=== PATIENT | male | born 1970 | race Caucasian/White ===

== ENCOUNTER 2020-01-22 11:48 | Outpatient (CLI) | payer OTHER, SELFPAY ==
--- NOTE | ~2020-01-22 | XR_ITS ---
XR chest 2V DATE: 01/22/2020 12:06 INDICATION: Shortness of breath. Dizziness. COPD. TECHNIQUE: PA and lateral views COMPARISON: 06/27/2016 two-view chest FINDINGS: Chronic mild elevation of right diaphragm and blunting of right costophrenic angle, stable since 06/27/2016. Mild bilateral apical capping. No pulmonary infiltrate or consolidation, pleural effusion or pulmonary vascular congestion or pneumo thorax is detected. Normal heart size. No hilar or mediastinal enlargement. Diffuse osteopenia. IMPRESSION: No active disease or significant or significant change since 06/27/2016 Reviewed, dictated and finalized at location A. IMPRESSION: No active disease or significant or significant change since 017
--- NOTE | 2020-01-22 12:06 | ECG_ITS ---
Measurements Intervals [place] Rate: 65 P: 51 IN: 151 QRS: 66 QRSD: 82 T: 53 QT: 392 QTc: 410 Interpretive Statements SINUS RHYTHM RSR' IN V1 OR V2, PROBABLY NORMAL VARIANT BORDERLINE ECG Electronically Signed On 01-22-2020 12:56:10 CDT by Weston Alva D.O.
[2020-01-22 13:04] LABS: Hematocrit 44.6 % (42.0-52.0); Hemoglobin 15.1 g/dL (14.0-18.0); Mean Corpuscular HGB Conc 33.9 g/dl (32-36); Mean Corpuscular Hemoglobin 31.3 pg (26-34); Mean Corpuscular Volume 92.5 fl (80-100); Mean Platelet Volume 9.4 fl (7.4-10.4); Platelet Count Result 250 k/mm3 (150-375); Red Blood Count 4.82 M/mm3 (4.6-6.20); Red Cell Distribution Width 12.7 % (11.5-14.5)
[2020-01-22 13:39] LABS: Anion Gap 11 mmol/L (8-16); Blood Urea Nitrogen 14 mg/dL (9-20); Calcium 9.4 mg/dL (8.4-10.2); Carbon Dioxide 24 mmol/L (22-30); Chloride 102 mmol/L (98-107); Estimated Glomerular Filt Rate > 60; Glucose 103 mg/dL (75-110); Potassium 4.3 mmol/L (3.4-5.0); Sodium 137 mmol/L (137-145)
== END 2020-01-22 11:49 | disposition home or self-care (01) ==
PROVIDERS: PCP Family Medicine; Visit Provider Nurse Practitioner Family
DX: R42 Dizziness and giddiness (principal); I10 Essential (primary) hypertension; R06.02 Shortness of breath
CPT/HCPCS: 36415; 71046; 80048; 84443; 85027; 93005

== ENCOUNTER 2020-02-16 15:53 | Outpatient (CLI) | payer OTHER, SELFPAY ==
--- NOTE | ~2020-02-16 | MR_ITS ---
EXAMINATION: MR brain/brain stem wo con EXAM DATE: 02/16/2020 16:47 INDICATION: Dizziness and giddiness. TECHNIQUE: Multi-sequential, multiplanar MR images of the brain, brainstem, internal auditory canals were obtained without contrast. Whole brain sagittal T1, axial diffusion, gradient echo (T2*), T1, T 2, FLAIR sequences obtained. High resolution coronal 3-D FIESTA, coronal T1 FSE, axial T1 FSPGR of t he internal auditory canals. There is no prior study for comparison. FINDINGS: No evidence of mastoid or middle ear opacification. The 7th/8th cranial nerve complexes a re symmetric, normal in course and caliber. No cerebellopontine angle masses. Posterior fossa unrem arkable. There are no areas of restricted diffusion to suggest acute infarction. There is no acute hemorrhage seen on the T2*, a hemosiderin sensitive sequence. No intraparenchymal brain mass. The ventricles a re normal in size. There are no extra-axial collections. Flow voids are seen in the cerebral arteri es on the T2-weighted sequences consistent with their expected patency. The orbits are unremarkable. Soft tissue is unremarkable. There is minimal mucoperiosteal thickening. IMPRESSION: 1. Unremarkable brain MRI examination. Reviewed, dictated and finalized at location B.
== END 2020-02-16 15:54 | disposition home or self-care (01) ==
PROVIDERS: PCP Family Medicine; Visit Provider Nurse Practitioner Family
DX: R42 Dizziness and giddiness (principal); H93.19 Tinnitus, unspecified ear
CPT/HCPCS: 70551

== ENCOUNTER 2022-02-27 02:59 | Emergency (ER) | payer OTHER, SELFPAY ==
[2022-02-27 03:14] VITALS: BP 172/89; PULSE 97; RESP 18; TEMP 36.1; O2SAT 100
--- NOTE | 2022-02-27 03:19 | ECG_ITS ---
Measurements Intervals [place] Rate: 82 P: 54 VT: 153 QRS: 58 QRSD: 88 T: 38 QT: 364 QTc: 427 Interpretive Statements SINUS RHYTHM NONSPECIFIC T-WAVE ABNORMALITY ABNORMAL ECG COMPARED TO ECG 01/22/2020 12:19:06 T-WAVE ABNORMALITY NOW PRESENT Electronically Signed On 02-27-2022 9:29:28 CDT by Jesús Barbosa M.D.
[2022-02-27 03:50] VITALS: BP 164/93; PULSE 94; RESP 15; O2SAT 98; O2SAT 99
[2022-02-27 04:03] VITALS: BP 139/77
--- NOTE | 2022-02-27 04:38 | ED.GENADULT ---
HPI - General Adult General Chief complaint: Unspecified Stated complaint: Anxiety,SOB after new supplements Time Seen by Provider: 02/27/22 04:24 Related Data Home Medications Medication Instructions Recorded Confirmed indomethacin 50 mg capsule 50 mg PO BID PRN gout 01/11/21 02/27/22 allopurinol 300 mg tablet 300 mg PO DAILY 02/27/22 02/27/22 metoprolol succinate 100 mg 150 mg PO DAILY 02/27/22 02/27/22 tablet,extended release 24 hr Allergies Allergy/AdvReac Type Severity Reaction Status Date / Time No Known Allergies Allergy Verified 02/27/22 03:00 [facility] Family History Family History Grandparent Cerebrovascular accident Family history of coronary artery disease Mother Cerebrovascular accident Family history of diabetes mellitus in first degree relative Family history of coronary artery disease Diabetes mellitus Hypertension Father Family history of diabetes mellitus in first degree relative Hypertension Diabetes mellitus Cerebrovascular accident Sibling Hypertension Multiple sclerosis Social History Social History Smoking packs per day: 0.5 Smoking cigarettes per day: 10.0 Years smoked: 20 Smoking pack-years: 10.00 Smoking status: Current every day smoker Tobacco type: cigarettes Second hand tobacco smoke exposure: Yes Alcohol intake: current Substance use: never Substance use type: does not use 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 Gender identity (if verbalized by the patient): Male Course Vital Signs Vital signs: Vital Signs Temperature 96.9 F L 02/27/22 03:14 Pulse Rate 97 02/27/22 03:14 Respiratory Rate 18 02/27/22 03:14 Blood Pressure 172/89 H 02/27/22 03:14 Pulse Oximetry 100 02/27/22 03:14 Oxygen Delivery Room Air 02/27/22 03:14 Temperature 96.9 F L 02/27/22 03:14 Pulse Rate 94 02/27/22 03:50 Respiratory Rate 15 02/27/22 03:50 Blood Pressure 139/77 02/27/22 04:03 Pulse Oximetry 98 02/27/22 03:50 Oxygen Delivery Room Air 02/27/22 03:50 Medical Decision Making Vital Signs Vital Signs: Vital Signs Temperature 96.9 F L 02/27/22 03:14 Pulse Rate 97 02/27/22 03:14 Respiratory Rate 18 02/27/22 03:14 Blood Pressure 172/89 H 02/27/22 03:14 Pulse Oximetry 100 02/27/22 03:14 Oxygen Delivery Room Air 02/27/22 03:14 Temperature 96.9 F L 02/27/22 03:14 Pulse Rate 94 02/27/22 03:50 Respiratory Rate 15 02/27/22 03:50 Blood Pressure 139/77 02/27/22 04:03 Pulse Oximetry 98 02/27/22 03:50 Oxygen Delivery Room Air 02/27/22 03:50 Discharge Plan Discharge Prescriptions: No Action indomethacin 50 mg capsule 50 mg PO BID PRN (Reason: gout) metoprolol succinate 100 mg tablet extended release 24 hr 150 mg PO DAILY Rx Instructions: TAKE 1.5 (ONE AND ONE-HALF) TABLETS BY MOUTH EVERY DAY allopurinol 300 mg tablet 300 mg PO DAILY Rx Instructions: TAKE 1 TABLET BY MOUTH EVERY DAY albuterol sulfate [Ventolin HFA] 90 mcg/actuation HFA aerosol inhaler 1 inhalation INHALATION Q4H PRN (Reason: shortness of breath or wheezing) Qty: 8 0RF hydrochlorothiazide 25 mg tablet 25 mg PO DAILY Qty: 90 1RF rosuvastatin [Crestor] 20 mg tablet 20 mg PO DAILY Qty: 90 0RF Follow-up/Referrals: Taras Christian MD [Primary Care Provider] -
--- NOTE | 2022-02-27 04:38 | ED.GENADULT ---
HPI - General Adult General Chief complaint: Unspecified Stated complaint: Anxiety,SOB after new supplements Time Seen by Provider: 02/27/22 04:24 History of Present Illness HPI narrative: Patient is a 51-year-old male with a history of hypertension, gout presenting with anxiety. Patient states that he started taking rocco supplements yesterday. Patient states he woke up in the middle of the night and felt anxious and jittery. States he was unable to fall asleep and then he felt slightly short of breath. Patient became concerned that he was having a reaction to the rocco. Denies chest pain, palpitations, lightheadedness, headache, numbness or weakness, abdominal pain, nausea or vomiting, diarrhea, leg swelling. Currently, patient states that he feels completely back to normal. Related Data Home Medications Medication Instructions Recorded Confirmed indomethacin 50 mg capsule 50 mg PO BID PRN gout 01/11/21 02/27/22 allopurinol 300 mg tablet 300 mg PO DAILY 02/27/22 02/27/22 metoprolol succinate 100 mg 150 mg PO DAILY 02/27/22 02/27/22 tablet,extended release 24 hr Allergies Allergy/AdvReac Type Severity Reaction Status Date / Time No Known Allergies Allergy Verified 02/27/22 03:00 Review of Systems Review of Systems: All systems reviewed & are unremarkable except as noted in HPI and below PMFSH Family History Family History Grandparent Cerebrovascular accident Family history of coronary artery disease Mother Cerebrovascular accident Family history of diabetes mellitus in first degree relative Family history of coronary artery disease Diabetes mellitus Hypertension Father Family history of diabetes mellitus in first degree relative Hypertension Diabetes mellitus Cerebrovascular accident Sibling Hypertension Multiple sclerosis Social History Social History Smoking packs per day: 0.5 Smoking cigarettes per day: 10.0 Years smoked: 20 Smoking pack-years: 10.00 Smoking status: Current every day smoker Tobacco type: cigarettes Second hand tobacco smoke exposure: Yes Alcohol intake: current Substance use: never Substance use type: does not use 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 Gender identity (if verbalized by the patient): Male Exam Narrative: GENERAL: Well-appearing, well-nourished, and in no acute distress. HEAD: Normocephalic, atraumatic. EYES: PERRLA and EOMI. ENT: Nares clear, no rhinorrhea or epistaxis. Mucous membranes moist. NECK: Supple. CHEST: Clear to auscultation. No respiratory distress. HEART: Regular rate and rhythm. No murmur heard. Normal peripheral pulses. ABDOMEN: Soft, nontender, nondistended, normal active bowel sounds. EXTREMITIES: Normal range of motion. No edema. SKIN: Warm, dry, no rash. NEURO: No focal deficits. Alert and oriented x3. PSYCH: Normal mood and affect. Course Course Emergency Course: Patient is a 51-year-old male presenting with an episode of anxiety. Vitals are within normal limits. Patient is well-appearing and in no acute distress. Exam is unremarkable. By the time I evaluated him, patient states that he feels completely back to normal. He plans to stop taking rocco. EKG per my interpretation shows normal sinus rhythm, normal axis and intervals, no ST elevation or depressions. Appears similar to prior. Patient feels comfortable going home. Advised PCP follow-up. Strict return precautions given. Patient discharged in stable condition. Vital Signs Vital signs: Vital Signs Temperature 96.9 F L 02/27/22 03:14 Pulse Rate 97 02/27/22 03:14 Respiratory Rate 18 02/27/22 03:14 Blood Pressure 172/89 H 02/27/22 03:14 Pulse Oximetry 100 02/27/22 03:14 Oxygen Delivery Room Air 02/27/22 03:14 Temperature 96.9 F L 02/27/22 03:14 Pulse Rate 85 1
[2022-02-27 05:18] VITALS: BP 138/85; PULSE 82; RESP 13; O2SAT 98
[2022-02-27 05:31] VITALS: PULSE 85; RESP 15; O2SAT 98
== END 2022-02-27 05:32 | disposition home or self-care (01) ==
PROVIDERS: Emergency Provider Emergency Medicine; PCP Family Medicine
DX: F41.9 Anxiety disorder, unspecified (principal); I10 Essential (primary) hypertension; M10.9 Gout, unspecified; F17.210 Nicotine dependence, cigarettes, uncomplicated; R94.31 Abnormal electrocardiogram [ECG] [EKG]
CPT/HCPCS: 93005; 99283

== ENCOUNTER 2022-09-22 08:32 | Emergency (ER) | payer OTHER, SELFPAY ==
[2022-09-22] VITALS (7 sets, daily range): BP systolic 122–148; BP diastolic 72–88; PULSE 68–80; RESP 16–23; TEMP 36.6; O2SAT 96–97
--- NOTE | ~2022-09-22 | CT_ITS ---
EXAMINATION: CTA brain carotid DATE: 09/22/2022 12:31 CDT INDICATION: Vertigo TECHNIQUE: Computed tomographic angiography (CTA) of the head was performed without and with 100 mL O mnipaque-350 intravenous contrast. CTA of the neck was performed with intravenous contrast. The dose- length product was 1929.42 mGy-cm. Maximum intensity projection and volume rendered 3D-reconstruction s were created by the technologist on a separate workstation. COMPARISON: MRI dated 02/16/2020. FINDINGS: HEAD CTA: Normal brain parenchymal volume normal leone-white differentiation. No acute infarction, hem orrhage, mass or mass effect. No ventriculomegaly or midline shift. Basilar cisterns are patent. Ther e is mild mucosal thickening of the ethmoid sinuses. Mastoids are pneumatized. No depressed skull fra ctures. The anterior, middle and posterior cerebral arteries are symmetric. No significant stenosis, occlusion or aneurysm. The vertebral arteries are symmetric. NECK CTA: There is mild mediastinal lymph node enlargement, most likely reactive. Severe emphysema. T hyroid gland is unremarkable. There is atherosclerosis of the right vertebral artery without occlusion proximally. No significant a bnormality of the common, internal or external carotid arteries. There is 0% stenosis of the proximal right internal carotid artery relative to normal distal artery l umen diameter (NASCET criteria). There is 0% stenosis of the proximal left internal carotid artery re lative to normal distal artery lumen diameter. IMPRESSION: 1. 0% stenosis of the proximal right internal carotid artery relative to normal distal artery lumen d iameter (NASCET criteria). 2. 0% stenosis of the proximal left internal carotid artery relative to normal distal artery lumen di ameter. 3: No acute intracranial abnormality. 4: No significant abnormality of the intracranial vasculature. Reviewed, dictated and finalized at location B. IMPRESSION: 1. 0% stenosis of the proximal right internal carotid artery relative to normal distal artery lumen diameter (NASCET criteria). 2. 0% stenosis of the proximal left internal carotid artery relative to normal distal artery lumen diameter. 3: No acute intracranial abnormality. 4: No significant abnormality of the intracranial vasculature.
--- NOTE | 2022-09-22 08:40 | ECG_ITS ---
Measurements Intervals [place] Rate: 79 P: 46 IN: 153 QRS: 55 QRSD: 79 T: 22 QT: 366 QTc: 422 Interpretive Statements SINUS RHYTHM NONSPECIFIC T-WAVE ABNORMALITY- INFERIOR LEADS BASELINE ARTIFACT- II, III, AVF BORDERLINE ECG COMPARED TO ECG 02/27/2022 03:55:43 NO SIGNIFICANT CHANGES Electronically Signed On 09-22-2022 8:43:53 CDT by Weston Alva D.O.
[2022-09-22 08:55] LABS: Basophils Absolute Auto 0.1 K/mm3 (0.0-0.1); Basophils Percent Auto 0.7 % (0.2-1.2); Eosinophils Absolute Auto 0.3 K/mm3 (0-0.3); Hematocrit 44.2 % (42.0-52.0); Hemoglobin 14.8 g/dL (14.0-18.0); Immature Granulocyte Absolute 0.04 K/mm3 (0.00-0.031); Immature Granulocyte Percent A 0.5 % (0-0.5); Lymphocytes Absolute Auto 2.24 K/mm3 (0.9-3.2); Lymphocytes Percent Auto 27.2 % (18.3-44.2); Mean Corpuscular HGB Conc 33.5 g/dl (32-36); Mean Corpuscular Hemoglobin 31.8 pg (26-34); Mean Corpuscular Volume 95.1 fl (80-100); Monocytes Absolute Auto 0.6 K/mm3 (0.1-0.6); Monocytes Percent Auto 6.8 % (2.6-8.5); Neutrophils Absolute Auto 5.1 K/mm3 (1.3-6.7); Neutrophils Percent Auto 61.8 % (45.5-73.1); Platelet Count Result 227 k/mm3 (150-375); Red Blood Count 4.65 M/mm3 (4.6-6.20); Red Cell Distribution Width 13.3 % (11.5-14.5); White Blood Count 8.3 K/mm3 (4.5-10.0)
[2022-09-22 09:06] LABS: Alanine Aminotransferase 31 U/L (6-50); Albumin Level 4.4 g/dL (3.5-5.1); Alkaline Phosphatase 72 U/L (38-126); Anion Gap 8 mmol/L (8-16); Aspartate Amino Transferase 33 U/L (17-59); Bilirubin,Total 0.5 mg/dL (0.2-1.3); Blood Urea Nitrogen 12 mg/dL (9-20); Calcium 8.4 mg/dL (8.4-10.2); Carbon Dioxide 25 mmol/L (22-30); Chloride 104 mmol/L (98-107); Estimated CRCL calculation 141 ml/min; Estimated Glomerular Filt Rate > 60; Glucose 126 mg/dL (65-110); Potassium 3.5 mmol/L (3.4-5.0); Sodium 137 mmol/L (137-145)
--- NOTE | 2022-09-22 10:32 | ED.DIZZY ---
HPI - Dizziness General Chief Complaint: Dizziness <GIANCARLO Lopez Last Filed: 09/22/22 17:56> Stated Complaint: ear pain/dizzy <GIANCARLO Lopez Last Filed: 09/22/22 17:56> Time Seen by Provider: 09/22/22 09:54 <GIANCARLO Lopez Last Filed: 09/22/22 17:56> Source: patient <GIANCARLO Lopez Last Filed: 09/22/22 17:56> Mode of arrival: ambulatory <GIANCARLO Lopez Last Filed: 09/22/22 17:56> Limitations: no limitations <GIANCARLO Lopez Last Filed: 09/22/22 17:56> History of Present Illness HPI Narrative: This is a 51-year-old male with PMH of hypertension, tinnitus who presents to the ED with chief complaint of dizziness beginning this morning. Patient states that his ear has felt clogged for the past few days. He states he has had problems with this in the past with cerumen impactions. Today he states the dizziness has been constant since this morning. Specifically worse with standing up from seated position. He reports that he had an episode of sweating with the dizziness as well. Reports feeling lightheaded, however did not have any LOC. Endorses some nausea with the dizziness. Denies fevers, vision changes, numbness, weakness, chest pain, shortness of breath, abdominal pain, cough. <GIANCARLO Lopez Last Filed: 09/22/22 17:56> Related Data Home Medications: Home Medications Medication Instructions Recorded Confirmed indomethacin 50 mg capsule 50 mg PO BID PRN gout 01/11/21 02/27/22 <GIANCARLO Lopez Last Filed: 09/22/22 17:56> Allergies/Adverse Reactions: Allergies Allergy/AdvReac Type Severity Reaction Status Date / Time No Known Allergies Allergy Verified 02/27/22 03:00 <GIANCARLO Lopez Last Filed: 09/22/22 17:56> Review of Systems Review of Systems: CONSTITUTIONAL: Denies fever, chills, or sweats. EYES: Denies visual changes, redness, or discharge. ENT: Denies rhinorrhea, congestion, sore throat, or otalgia. CARDIOVASCULAR: Denies chest pain, palpitations, or edema. RESPIRATORY: Denies cough or dyspnea. GASTROINTESTINAL: Denies abdominal pain, nausea, vomiting, or diarrhea. GENITOURINARY: Denies dysuria or hematuria. SKIN: Denies rash or itching. MUSCULOSKELETAL: Denies back pain, joint pain, or myalgia. NEUROLOGIC: See HPI PSYCHIATRIC: Denies anxiety or depression. <Tommie Steven PA-C - Last Filed: 09/22/22 17:56> PMFSH Family History Family History: Family History Grandparent Cerebrovascular accident Family history of coronary artery disease Mother Cerebrovascular accident Family history of diabetes mellitus in first degree relative Family history of coronary artery disease Diabetes mellitus Hypertension Father Family history of diabetes mellitus in first degree relative Hypertension Diabetes mellitus Cerebrovascular accident Sibling Hypertension Multiple sclerosis <Tommie Steven PA-C - Last Filed: 09/22/22 17:56> Social History Social History: Social History Smoking packs per day: 0.5 Smoking cigarettes per day: 10.0 Years smoked: 20 Smoking pack-years: 10.00 Smoking status: Current every day smoker Tobacco type: cigarettes Second hand tobacco smoke exposure: Yes Alcohol intake: current Substance use: never Substance use type: does not use Living arrangements: with family Occupation/Education: occupation 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 Gender identity (if verbalized by the patient): Male <Tommie Steven PA-C - Last Filed: 09/22/22 17:56> Exam Narrative: GENERAL: Well-appearing, well-nourished, and in no acute distress. HEAD: Normocephalic, atraumatic. EYES: PERRLA and EOMI. ENT: Nares clear, no rhinorrhea or epistaxis. Mucous membranes moist. Oropharynx witho
[2022-09-22] MEDS: SODIUM CHLORIDE 0.9% IV 1,000 ML 999 ML IV CONT (11:07)
[2022-09-22] MEDS: ONDANSETRON INJ 4 MG/2 ML VIAL IV PUSH (11:08)
[2022-09-22] MEDS: MECLIZINE HCL 25 MG TABLET PO (11:08)
--- NOTE | 2022-09-22 13:15 | PC.NURSE ---
attempted ear irrigation, pt unable to tolerate. irrigation unsuccessful. PA notified.
== END 2022-09-22 13:16 | disposition home or self-care (01) ==
PROVIDERS: Emergency Medicine; Emergency Provider Physician Assistant; PCP Family Medicine
DX: H69.91 Unspecified Eustachian tube disorder, right ear (principal); H61.21 Impacted cerumen, right ear; I10 Essential (primary) hypertension; F17.210 Nicotine dependence, cigarettes, uncomplicated; R94.31 Abnormal electrocardiogram [ECG] [EKG]
CPT/HCPCS: 36415; 69209; 70496; 70498; 80053; 85025; 93005; 96361; 96374; 99284; A9270; J2405; J7030; Q9967

== ENCOUNTER 2023-08-22 15:25 | Outpatient (CLI) | payer OTHER, SELFPAY ==
--- NOTE | ~2023-08-22 | XR_ITS ---
XR chest 2V 08/22/2023 15:40 Indication: Cough. Procedure: 2 view chest Comparison: Chest x-ray report dated 01/22/2020 Findings: Heart size normal. There is mild interstitial edema. Small right pleural effusion. No pneum othorax. The lungs are hyperinflated which is consistent with, but not diagnostic of chronic obstruct juan carlos pulmonary disease. Impression: 1: Mild interstitial edema. Atypical pneumonia less favored. 2: Small right pleural effusion. Reviewed, dictated and finalized at location A. Impression: 1: Mild interstitial edema. Atypical pneumonia less favored. 2: Small right pleural effusion.
== END 2023-08-22 15:26 ==
LOC: MICIMG 15:27
PROVIDERS: PCP Family Medicine; Visit Provider Nurse Practitioner Adult Health
DX: R05.8 Other specified cough (principal); J90 Pleural effusion, not elsewhere classified; R60.9 Edema, unspecified
CPT/HCPCS: 71046

== ENCOUNTER 2024-03-12 14:34 | Outpatient (CLI) | payer OTHER, SELFPAY ==
--- NOTE | ~2024-03-12 | XR_ITS ---
XR hip RT 2V w AP pelvis Ordering provider: Aby Marx, PAC History: . M25.551 - Pain in right hip . Comparison: None. FINDINGS: BONES: No acute fracture or dislocation. HIP JOINT SPACES: Normal. SACROILIAC JOINT SPACES/LUMBAR SPINE: The sacroiliac joint spaces are normal. Mild degenerative edwards es of the visualized lower lumbar spine. PUBIC SYMPHYSIS: Normal. SOFT TISSUES: Normal. IMPRESSION: No acute osseous abnormality pelvis and right hip. Reviewed, dictated and finalized at location A.
== END 2024-03-12 14:35 | disposition home or self-care (01) ==
LOC: MICIMG 14:35
PROVIDERS: PCP Family Medicine; Visit Provider Physician Assistant Medical
DX: M25.551 Pain in right hip (principal)
CPT/HCPCS: 73502

== ENCOUNTER 2024-03-20 12:06 | Emergency (ER) | payer OTHER, SELFPAY ==
--- NOTE | ~2024-03-20 | US_ITS ---
EXAMINATION: US joint non vasc comp RT DATE: 03/20/2024 13:20 INDICATION: Right trochanteric bursitis. Right hip pain. TECHNIQUE: Multiple grayscale and Doppler ultrasound images of the right lower limb were obtained. COMPARISON: Pelvis and right hip radiographs 03/12/2024 FINDINGS: There is no significant fluid in the right trochanteric bursa. IMPRESSION: 1. No significant fluid in the right trochanteric bursa. Reviewed, dictated and finalized at location A. 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
[2024-03-20 12:38] VITALS: BP 163/95; PULSE 97; RESP 15; TEMP 36.6; O2SAT 96
[2024-03-20] MEDS: KETOROLAC 30 MG/ML VIAL (*BKC) IM (13:13)
--- NOTE | 2024-03-20 13:17 | PC.NURSE ---
pt declines [place] at this time due to not being able to find a ride after taking medication. pt agrees to taking Ketorolac IM
--- NOTE | 2024-03-20 13:44 | ED.BACK ---
HPI - Back Pain/Injury General Chief Complaint: Back Pain/Injury Stated Complaint: right hip pain Time Seen by Provider: 03/20/24 12:22 History of Present Illness HPI Narrative: Patient is a 53-year-old male who presents ER with right hip pain. Ongoing over last 8 weeks. Progressively worsening despite having taken some anti-inflammatories and having received a steroid injection in anti-inflammatory injection at his PCPs office. He had an x-ray of his right hip that showed no fracture arthritis. He continues to have discomfort that is worse when he initially goes from sitting to standing tries to walk. His pain then decreases and he is able to ambulate. No known trauma. No lower extremity numbness or tingling. Pain does radiate into the anterior thigh. Reports he cannot get an MRI until he has done physical therapy. He takes no anti-inflammatory medications at this time only muscle relaxers. No swelling to the extremity. Patient reports the discomfort is behind his right hip. Related Data Allergies Allergy/AdvReac Type Severity Reaction Status Date / Time No Known Allergies Allergy Verified 03/03/24 15:08 Review of Systems Review of Systems: All systems reviewed & are unremarkable except as noted in HPI and below ENT: Reports system reviewed and no additional complaints, except as documented Cardiovascular: Cardiovascular: Reports no additional cardiovascular complaints Musculoskeletal: Musculoskeletal: Denies back pain, Reports arthralgias, Denies joint swelling and Denies muscle cramps PMFSH Past Medical History Medical History BMI 31.0-31.9,adult Bronchitis Cough present for greater than 3 weeks Shortness of breath Family History Family History Grandparent Cerebrovascular accident Family history of coronary artery disease Mother Cerebrovascular accident Family history of diabetes mellitus in first degree relative Family history of coronary artery disease Diabetes mellitus Hypertension Father Family history of diabetes mellitus in first degree relative Hypertension Diabetes mellitus Cerebrovascular accident Sibling Hypertension Multiple sclerosis Social History Social History Smoking packs per day: 0.5 Smoking cigarettes per day: 10.0 Years smoked: 20 Smoking pack-years: 10.00 Smoking status: Current every day smoker Tobacco type: cigarettes Second hand tobacco smoke exposure: Yes Alcohol intake: current Substance use: never Substance use type: does not use Living arrangements: with family Occupation/Education: occupation 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 Gender identity (if verbalized by the patient): Male Exam Narrative: GENERAL: Well-appearing, well-nourished, and in no acute distress. HEAD: Normocephalic, atraumatic. ENT: Mucous membranes moist. CHEST: Clear to auscultation. No respiratory distress. HEART: Regular rate and rhythm. Normal peripheral pulses.Back: No midline tenderness of the T/L spine. No paraspinal muscle tenderness. No tenderness over gluteal musculature. EXTREMITIES: Normal range of motion. No edema. No tenderness at hip with palpation. Initially had some pain with walking but is able to stand without issue. Walks with a limp. SKIN: Warm, dry, no rash. NEURO: Alert and oriented x3. PSYCH: Normal mood and affect. Course Course Emergency Course: No evidence bursitis. Recommend scheduled anti-inflammatories marking with a cane. Likely needs physical therapy and /or MRI. Follow-up with PCP. Vital Signs Vital signs: Vital Signs Temperature 98 F 03/20/24 12:38 Pulse Rate 97 03/20/24 12:38 Respiratory Rate 15 03/20/24 12:38 Blood Pressure 163/95 H 03/20/24 12:38 Pulse Oximetry 96 03/20/24 12:38 Oxygen Delivery Room Air 03/20/24 12:38 Temperature 98 F 03/20/24 12:38 Pulse Rate 97 03/20/24 12:38 Respiratory Rate 15 03/20/24 12:38 Blood Pressure 163/95 H 03/20/24 12:38 Pulse Oximetry 96 03/20/24 12:38 Oxygen Delivery Room Air 03/20/24 12:38 MDM - Back Pain/Injury Imaging Data Radiologist's impression: ITS Impressions Extremity Ultrasound 03/20/24 13:27 IMPRESSION: 1. No significant fluid in the right trochanteric bursa. Discharge Plan Discharge Clinical Impression: Chronic pain Patient Disposition: Home, Self-Care Condition: Stable Instructions: Hip Pain (ED) Additional Instructions: It is recommended you use a cane when your walking. Continue take anti-inflammatories to help remedy the issue at hand. You likely need to do physical therapy and received an outpatient MRI which can be organized by your primary care physician. Prescriptions: New naproxen 375 mg tablet 375 mg PO BID Qty: 14 0RF hydrocodone-acetaminophen 5-325 mg tablet 1 tablet PO Q6H PRN (Reason: pain) Qty: 10 0RF No Action cyclobenzaprine 10 mg tablet 10 mg PO TID PRN (Reason: muscle spasm) Qty: 30 0RF albuterol sulfate 90 mcg/actuation HFA aerosol inhaler 2 puff inhalation Q4H PRN (Reason: shortness of breath or wheezing) Qty: 6.7 0RF allopurinol 300 mg tablet 300 mg PO DAILY Qty: 90 1RF Rx Instructions: TAKE 1 TABLET BY MOUTH EVERY DAY hydrochlorothiazide 25 mg tablet 25 mg PO DAILY Qty: 90 3RF rosuvastatin 20 mg tablet 20 mg PO DAILY Qty: 90 1RF indomethacin 50 mg capsule 50 mg PO BID PRN (Reason: gout) Qty: 30 0RF metoprolol succinate 100 mg tablet extended release 24 hr See Rx Instructions .ROUTE .COMPLEX Qty: 135 0RF Dose Instruction: TAKE 1.5 TABLETS BY MOUTH EVERY DAY Rx Instructions: TAKE 1.5 TABLETS BY MOUTH EVERY DAY Follow-up/Referrals: Taras Christian MD [Primary Care Provider] - 1 Week
== END 2024-03-20 14:04 | disposition home or self-care (01) ==
PROVIDERS: Emergency Provider Emergency Medicine; PCP Family Medicine
DX: M25.551 Pain in right hip (principal); G89.29 Other chronic pain; F17.210 Nicotine dependence, cigarettes, uncomplicated
CPT/HCPCS: 76881; 96372; 99284; J1885

== ENCOUNTER 2024-05-22 09:46 | Outpatient (CLI) | payer OTHER, SELFPAY ==
--- NOTE | ~2024-05-22 | MR_ITS ---
EXAMINATION: MR hip RT wo con DATE: 05/22/2024 10:36 INDICATION: Right hip pain. TECHNIQUE: Magnetic resonance imaging (MRI) of the right hip was performed without intravenous contra st. COMPARISON: Right hip radiographs 03/12/2024 FINDINGS: Bones/cartilage: There is decreased right-sided femoral head/neck offset, which may be seen with femoral acetabular im pingement. No fracture. There are large areas of osteonecrosis in the femoral heads bilaterally. Smal l [id number] images of right hip demonstrate partial-thickness cartilage loss and tiny osteophytes . There is edema-like marrow signal intensity in the right acetabulum and to a lesser extent the left acetabulum. There are tiny osteophytes in left hip. Labrum: There is a tear of the right acetabular labrum. Fluid: There is a right hip joint effusion. There is mild bilateral trochanter bursitis. Soft tissues: There is mild tendinopathy of the hamstring origins bilaterally. The iliopsoas tendons are normal. Th ere is mild tendinopathy of the gluteus minimus tendons. The gluteus medius tendons are normal. There is a left inguinal hernia containing fat. IMPRESSION: 1. Osteonecrosis of the femoral heads. 2. Mild osteoarthritis of the hips. 3. Right hip joint effusion. Reviewed, dictated and finalized at location A. [facility]
== END 2024-05-22 09:47 | disposition home or self-care (01) ==
PROVIDERS: PCP Family Medicine
DX: M16.11 Unilateral primary osteoarthritis, right hip (principal); M25.451 Effusion, right hip
CPT/HCPCS: 73721